=== PATIENT | female | born 1955 | race Caucasian/White ===

== ENCOUNTER 2018-02-02 11:29 | Emergency (ER) | payer OTHER ==
[2018-02-02 12:10] LABS: BASOPHILS % (AUTO) 0.7 % (0.0-5.0); EOSINOPHILS % (AUTO) 1.5 % (0.0-8.0); LYMPHOCYTES % (AUTO) 33.7 % (21.0-51.0); MEAN CORPUSCULAR HEMOGLOBIN 32.9 pg (27.0-33.0); MEAN CORPUSCULAR HGB CONC 35.2 g/dL (32.0-36.0); MEAN CORPUSCULAR VOLUME 93.6 fL (79-99); MONOCYTES % (AUTO) 5.1 % (3.0-13.0); PLATELET COUNT (AUTO) 139 K/uL (130-400); RED BLOOD CELL COUNT(AUTO) 4.37 MIL/uL (4.00-5.50); RED CELL DISTRIBUTION WIDTH 12.9 % (11.0-15.5); WHITE BLOOD COUNT (AUTO) 5.1 K/uL (4.8-10.8)
[2018-02-02 12:23] LABS: CREATININE 7.4 mg/dL (0.5-1.5)
[2018-02-02 12:28] LABS: BILIRUBIN,TOTAL 0.5 mg/dL (0.2-1.0); TOTAL PROTEIN, SERUM 7.8 g/dL (6.0-8.3)
[2018-02-02 12:34] LABS: INR 0.92 (0.85-1.15); PARTIAL THROMBOPLASTIN TIME 24.4 SEC (26.3-35.5); PROTHROMBIN TIME 9.7 SEC (9.6-11.6)
[2018-02-02] MEDS ORDERED: IPRATROPIUM/ALBUTEROL SULFATE 3 ML SOLUTION IH ONE (12:49)
[2018-02-02 13:51] LABS: APPEARANCE,URINE Clear (CLEAR); BILIRUBIN,URINE Negative (NEGATIVE); COLOR,URINE Yellow (YELLOW); GLUCOSE, URINE (UA) Negative (NEGATIVE); KETONES,URINE Negative (NEGATIVE); LEUKOCYTE ESTERASE ,URINE Negative (NEGATIVE); NITRATE,URINE Negative (NEGATIVE); OCCULT BLOOD,URINE Small (NEGATIVE); PH,URINE 8.5 (5.0-8.0); PROTEIN,URINE POS 1+ (NEGATIVE); UROBILINOGEN,URINE 0.2 mg/dL (0.2-1.0)
[2018-02-02 13:57] LABS: BACTERIA,URINE Rare /HPF (None Seen); RBC,URINE 0-1 /HPF (0-1); SQUAMOUS EPITHELIAL CELL,UR Rare /HPF (0-2); WBC,URINE 0-1 /HPF (0-1)
[2018-02-02 15:41] LABS: CREATINE KINASE MB < 0.5 ng/mL (0.5-3.6); CREATINE KINASE, TOTAL 14 U/L (21-232); MYOGLOBIN 116 ng/mL (10-92); TROPONIN I < 0.04 ng/mL (0.00-0.06)
== END 2018-02-02 16:22 | disposition home or self-care (01) ==
LOC: EDH 11:29
DX: J45.901 Unspecified asthma with (acute) exacerbation (principal); N18.6 End stage renal disease; Z99.2 Dependence on renal dialysis; Z88.6 Allergy status to analgesic agent; Z87.891 Personal history of nicotine dependence
CPT/HCPCS: 36415; 71045; 80053; 81001; 82550; 82553; 83874; 84484; 85025; 85610; 85730; 93005; 94640; 99291

== ENCOUNTER → 2018-12-28 | Outpatient (CLI) | payer OTHER ==
[2018-12-28 08:55] LABS: INR 0.95 (0.85-1.15)
--- NOTE | 2018-12-28 09:35 | NUR ---
U/S GD RIGHT THORACENTESIS PROCEDURE PERFORMED BY DR IBARAR. PUNCTURE SITE RIGHT POSTERIOR BACK AND PATIENT TOLERATED PROCEDURE WELL. TOTAL REMOVED 1.5 LITERS OF CLEAR YELLOW FLUID. END OF PROCEDURE AT 0955. CATHETER REMOVED AND DRESSING APPLIED. NO BLEEDING NOTED. POST CHEST X-RAY TAKEN AND READ BY DR IBARRA. NO PNEUMOTHORAX SEEN. DISCHARGE INSTRUCTIONS GIVEN TO PATIENT AND VERBALIZED UNDERSTANDING. DISCHARGED VIA W/C @ 1025. AAO X3 WITH NO C/O PAIN.
[2018-12-28 15:36] LABS: APPEARANCE BODY FLUID CLEAR (CLEAR); COLOR,BODY FLUID LT YELLOW (LT YELLOW); SPECIMENTYPE,BODY FLUID PLEURAL; TOTAL VOLUME,BODY FLUID 1500 mL
[2018-12-28 15:37] LABS: BODY FLUID RBC 13 /cu. mm.; BODY FLUID WBC 37 /cu. mm.
[2018-12-28 16:18] LABS: BF EOSINOPHIL 2 %; BF LYMPHOCYTE 29 %; BF MONOCYTE 17 %; BF OTHER CELLS 12
== END | disposition home or self-care (01) ==
LOC: RAH 08:12
PROVIDERS: ATTEND Internal Medicine Medical Oncology
DX: J90 Pleural effusion, not elsewhere classified (principal); C50.911 Malignant neoplasm of unspecified site of right female breast; N18.6 End stage renal disease; E66.9 Obesity, unspecified; J45.909 Unspecified asthma, uncomplicated; E78.5 Hyperlipidemia, unspecified; Z99.2 Dependence on renal dialysis; Z98.890 Other specified postprocedural states; Z87.891 Personal history of nicotine dependence; Z79.899 Other long term (current) drug therapy; Z88.6 Allergy status to analgesic agent; Z88.8 Allergy status to other drugs, medicaments and biological substances
CPT/HCPCS: 32555; 36415; 71045; 85610; 85730; 87071; 87116; 87205; 87206; 89051

== ENCOUNTER 2019-02-01 00:29 | Observation (INO) | payer OTHER ==
[~2019-02-01] VITALS: Ht 165.1 cm; Wt 64.8 kg
[2019-02-01 00:53] LABS: BASOPHILS % (AUTO) 0.8 % (0.0-5.0); EOSINOPHILS % (AUTO) 2.7 % (0.0-8.0); HEMATOCRIT 37.6 % (36-48); LYMPHOCYTES % (AUTO) 25.5 % (21.0-51.0); MEAN CORPUSCULAR HEMOGLOBIN 32.3 pg (27.0-33.0); MEAN CORPUSCULAR HGB CONC 34.2 g/dL (32.0-36.0); MEAN CORPUSCULAR VOLUME 94.4 fL (79-99); MONOCYTES % (AUTO) 6.6 % (3.0-13.0); NEUTROPHILS % (AUTO) 64.4 % (40.0-77.0); NUCLEATED RED BLOOD CELLS 0.1 % (0.0-0.19); PLATELET COUNT (AUTO) 160 K/uL (130-400); RED BLOOD CELL COUNT(AUTO) 3.99 MIL/uL (4.00-5.50); RED CELL DISTRIBUTION WIDTH 13.2 % (11.0-15.5); WHITE BLOOD COUNT (AUTO) 6.5 K/uL (4.8-10.8)
[2019-02-01 01:24] LABS: POTASSIUM 3.5 mmol/L (3.5-5.1)
[2019-02-01 01:29] LABS: ALBUMIN 3.1 g/dL (3.5-5.0); BILIRUBIN,TOTAL 0.3 mg/dL (0.2-1.0); TOTAL PROTEIN, SERUM 5.7 g/dL (6.0-8.3)
[2019-02-01 01:33] LABS: APPEARANCE,URINE Clear (CLEAR); BILIRUBIN,URINE Negative (NEGATIVE); COLOR,URINE Yellow (YELLOW); GLUCOSE, URINE (UA) Negative (NEGATIVE); KETONES,URINE Negative (NEGATIVE); LEUKOCYTE ESTERASE ,URINE Trace (NEGATIVE); NITRATE,URINE Negative (NEGATIVE); OCCULT BLOOD,URINE Trace (NEGATIVE); PROTEIN,URINE POS 1+ mg/dL (NEGATIVE); UROBILINOGEN,URINE 0.2 mg/dL (0.2-1.0)
[2019-02-01 01:54] LABS: RBC,URINE 0-1 /HPF (0-1); WBC,URINE 0-1 /HPF (0-1)
[2019-02-01 01:55] LABS: BACTERIA,URINE Few /HPF (None Seen); SQUAMOUS EPITHELIAL CELL,UR 0-2 /HPF (0-2)
[2019-02-01] MEDS ORDERED: ACETAMINOPHEN EXTRA STRENGTH 500 MG TABLET ONE (02:18)
[2019-02-01] MEDS ORDERED: NITROGLYCERIN 1GM/1 INCH PACKET TD SCH (04:15)
[2019-02-01] MEDS ORDERED: NITROGLYCERIN 0.4 MG SL TAB SL PRN (04:15)
[2019-02-01] MEDS ORDERED: ONDANSETRON HCL 4 MG/2 ML VIAL IV PRN (04:15)
[2019-02-01 04:35] LABS: MAGNESIUM 2.2 mg/dL (1.80-2.40); PHOSPHORUS 5.8 mg/dL (2.5-4.9)
[2019-02-01] MEDS ORDERED: ACETAMINOPHEN 325 MG TAB PO PRN ×2 (04:45)
[2019-02-01] MEDS ORDERED: NITROGLYCERIN 1GM/1 INCH PACKET TD ONE (04:50)
[2019-02-01 07:42] VITALS: BP 129/81
[2019-02-01] MEDS: FAMOTIDINE 20MG TAB 20 MG TAB PO SCH ×2 (09:06→19:51)
[2019-02-01] MEDS: NITROGLYCERIN 1GM/1 INCH PACKET TD SCH ×3 (09:07→23:14)
[2019-02-01] MEDS: ENOXAPARIN SODIUM 30 MG/0.3 ML SQ SCH (09:08)
[2019-02-01 09:35] LABS: CHOLESTEROL 210 mg/dL (<200); CREATINE KINASE, TOTAL 25 U/L (21-232); HDL CHOLESTEROL 46 mg/dL (35-85); LDL DIRECT 99 mg/dL (0-99); MYOGLOBIN 175 ng/mL (10-92); TRIGLYCERIDES 322 mg/dL (30-200); TROPONIN I < 0.04 ng/mL (0.00-0.06)
[2019-02-01] MEDS ORDERED: FOLI1TAB85 PO (10:17)
[2019-02-01] MEDS ORDERED: LETR2.5T6 PO (10:17)
[2019-02-01] MEDS ORDERED: SEVE800T27 PO (10:17)
[2019-02-01] MEDS ORDERED: MONT10TA21 PO (10:17)
[2019-02-01] MEDS ORDERED: ALBU8.5H8 IH (10:17)
[2019-02-01] MEDS ORDERED: CALC0.253 PO (10:17)
[2019-02-01 11:00] VITALS: BP 129/70
[2019-02-01 16:00] VITALS: BP 131/74
[2019-02-01 17:23] LABS: CREATINE KINASE, TOTAL 19 U/L (21-232); MYOGLOBIN 153 ng/mL (10-92); TROPONIN I < 0.04 ng/mL (0.00-0.06)
[2019-02-01 20:00] VITALS: BP 126/69
[2019-02-01 23:34] VITALS: BP 129/73
[2019-02-02 04:00] VITALS: BP 128/73
[2019-02-02 06:08] LABS: BASOPHILS % (AUTO) 1.5 % (0.0-5.0); EOSINOPHILS % (AUTO) 4.3 % (0.0-8.0); LYMPHOCYTES % (AUTO) 34.2 % (21.0-51.0); MEAN CORPUSCULAR HEMOGLOBIN 32.4 pg (27.0-33.0); MEAN CORPUSCULAR HGB CONC 34.5 g/dL (32.0-36.0); MEAN CORPUSCULAR VOLUME 93.9 fL (79-99); MONOCYTES % (AUTO) 6.3 % (3.0-13.0); NEUTROPHILS % (AUTO) 53.7 % (40.0-77.0); PLATELET COUNT (AUTO) 172 K/uL (130-400); RED BLOOD CELL COUNT(AUTO) 3.94 MIL/uL (4.00-5.50); WHITE BLOOD COUNT (AUTO) 4.2 K/uL (4.8-10.8)
[2019-02-02 06:46] LABS: BILIRUBIN,TOTAL 0.4 mg/dL (0.2-1.0); POTASSIUM 3.2 mmol/L (3.5-5.1); TOTAL PROTEIN, SERUM 6.3 g/dL (6.0-8.3)
[2019-02-02 08:00] VITALS: BP 115/71
[2019-02-02] MEDS: NITROGLYCERIN 1GM/1 INCH PACKET TD SCH ×2 (08:04→15:04)
[2019-02-02] MEDS: FAMOTIDINE 20MG TAB 20 MG TAB PO SCH (08:19)
[2019-02-02] MEDS: SEVELAMER HCL 800 MG TABLET PO SCH ×2 (08:19→11:30)
[2019-02-02] MEDS: ENOXAPARIN SODIUM 30 MG/0.3 ML SQ SCH (08:19)
[2019-02-02] MEDS ORDERED: FOLIC ACID/VITAMIN B COMP W-C 1 MG CAPSULE PO SCH (09:00)
[2019-02-02] MEDS ORDERED: MONTELUKAST SODIUM 10 MG TAB PO SCH (09:00)
[2019-02-02] MEDS ORDERED: LETROZOLE 2.5 MG PO SCH (09:00)
[2019-02-02] MEDS ORDERED: CALCITRIOL 0.25 MCG CAPSULE PO SCH (09:00)
[2019-02-02 11:00] VITALS: BP_SYST 135; BP_SYST 140; BP_DIAS 73; BP_DIAS 79
[2019-02-02] MEDS ORDERED: FAMO-136 PO (15:25)
[2019-02-02] MEDS ORDERED: POTASSIUM CHLORIDE 20 MEQ ERTAB PO SCH (15:30)
== END 2019-02-02 15:56 | disposition home or self-care (01) ==
LOC: EDH 00:29 → EDHIP 04:10 → 4BH 07:12
PROVIDERS: ADMIT Hospitalist; ATTEND Hospitalist
DX: R07.89 Other chest pain (principal); I12.0 Hypertensive chronic kidney disease with stage 5 chronic kidney disease or end stage renal disease; N18.6 End stage renal disease; E11.22 Type 2 diabetes mellitus with diabetic chronic kidney disease; E78.5 Hyperlipidemia, unspecified; R91.1 Solitary pulmonary nodule; I49.1 Atrial premature depolarization; J90 Pleural effusion, not elsewhere classified; K21.9 Gastro-esophageal reflux disease without esophagitis; K76.89 Other specified diseases of liver; Q61.3 Polycystic kidney, unspecified; Z90.710 Acquired absence of both cervix and uterus; Z92.21 Personal history of antineoplastic chemotherapy; Z85.3 Personal history of malignant neoplasm of breast; Z92.3 Personal history of irradiation; Z99.2 Dependence on renal dialysis; Z80.42 Family history of malignant neoplasm of prostate; Z88.8 Allergy status to other drugs, medicaments and biological substances; Z79.899 Other long term (current) drug therapy
CPT/HCPCS: 36415 ×2; 71045; 71250; 80053 ×2; 80061; 81001; 82550 ×3; 83615; 83690; 83735; 83874 ×2; 84100; 84484 ×4; 85025 ×2; 85378; 93005 ×4; 94760 ×2; 96372 ×2; 99284; G0378 ×36; J1650 ×2

== ENCOUNTER 2020-04-13 07:42 | Emergency (ER) | payer MEDICARE ==
[~2020-04-13 07:42] MED LIST: ALBU8.5H8 IH; CALC0.253 PO; FAMO-136 PO; FOLI1TAB85 PO; LETR2.5T7 PO; MONT10TA21 PO; SEVE800T27 PO
[2020-04-13 08:01] LABS: BASOPHILS % (AUTO) 0.6 % (0.0-5.0); EOSINOPHILS % (AUTO) 1.7 % (0.0-8.0); HEMATOCRIT 37.2 % (36-48); LYMPHOCYTES % (AUTO) 14.8 % (21.0-51.0); MEAN CORPUSCULAR HEMOGLOBIN 31.8 pg (27.0-33.0); MEAN CORPUSCULAR HGB CONC 34.1 g/dL (32.0-36.0); MEAN CORPUSCULAR VOLUME 93.2 fL (79-99); MONOCYTES % (AUTO) 6.2 % (3.0-13.0); NEUTROPHILS % (AUTO) 76.4 % (40.0-77.0); PLATELET COUNT (AUTO) 253 K/uL (130-400); RED BLOOD CELL COUNT(AUTO) 3.99 MIL/uL (4.00-5.50); RED CELL DISTRIBUTION WIDTH 12.6 % (11.0-15.5); WHITE BLOOD COUNT (AUTO) 9.3 K/uL (4.8-10.8)
[2020-04-13 08:13] LABS: INR 0.92 (0.85-1.15); PARTIAL THROMBOPLASTIN TIME 26.8 SEC (26.3-35.5)
[2020-04-13 08:16] LABS: ALBUMIN 3.2 g/dL (3.5-5.0); ASPARTATE AMINOTRANSFERASE 8 U/L (10-37); BILIRUBIN,TOTAL 0.5 mg/dL (0.2-1.0); CARBON DIOXIDE 27 mmol/L (21-32); CHLORIDE 95 mmol/L (101-111); CREATINE KINASE, TOTAL 48 U/L (21-232); GLOMERULAR FILTR. RATE CALC 2 mL/min (>60); GLUCOSE,RANDOM 123 mg/dL (70-105); POTASSIUM 3.3 mmol/L (3.5-5.1); SODIUM SERUM 142 mmol/L (136-145); TOTAL PROTEIN, SERUM 7.2 g/dL (6.0-8.3); UREA NITROGEN, BLOOD 47 mg/dL (7-18)
--- NOTE | 2020-04-13 08:28 | NUR ---
COVID-19 ASSESSMENT PATIENT PRESENTED TO ER WITH C/O SHORTNESS OF BREATH AND RECURRENT PLEURAL EFFUSION. DR SNOW AWARE OF PATIENT'S SYMPTOMS AND DOES NOT FEEL COVID-19 TESTING REQUIRED. Addendum: 04/13/20 at 0835 by SALBADOR SERRANO RN RN Amended: Links added.
[2020-04-13 08:34] LABS: ALANINE AMINOTRANSFERASE < 6 U/L (12-78)
[2020-04-13 08:35] LABS: CREATININE 15.7 mg/dL (0.5-1.5)
--- NOTE | 2020-04-13 09:04 | NUR ---
U/S GD RIGHT THORACENTESIS PROCEDURE PERFORMED BY DR Rosy RUVALCABA. PUNCTURE SITE RIGHT POSTERIOR BACK AND PATIENT TOLERATED PROCEDURE WELL. TOTAL REMOVED 1.5 LITERS OF CLEAR YELLOW FLUID. END OF PROCEDURE AT 0845. CATHETER REMOVED AND DRESSING APPLIED. NO BLEEDING NOTED. POST CHEST X-RAY TAKEN AND PENDING RESULTS. REPORT GIVEN TO Vannessa MINA RN AND PATIENT TRANSPORTED TO ED 19 VIA STRETCHER AT 0905. AAO X3 WITH NO C/O PAIN.
== END 2020-04-13 09:42 | disposition home or self-care (01) ==
LOC: EDH 07:42
DX: J90 Pleural effusion, not elsewhere classified (principal); R07.1 Chest pain on breathing; N18.6 End stage renal disease; Z88.6 Allergy status to analgesic agent; Z90.710 Acquired absence of both cervix and uterus; Z88.8 Allergy status to other drugs, medicaments and biological substances; Z99.2 Dependence on renal dialysis; Z87.891 Personal history of nicotine dependence
CPT/HCPCS: 32555; 36415; 71045 ×2; 80053; 82550; 84484; 85025; 85610; 85730; 93005; 99285; A4215

== ENCOUNTER 2020-09-15 19:32 | Emergency (ER) | payer MEDICARE ==
[2020-09-15 20:25] LABS: BASOPHILS % (AUTO) 0.4 % (0.0-5.0); LYMPHOCYTES % (AUTO) 13.1 % (21.0-51.0); MEAN CORPUSCULAR VOLUME 96.8 fL (79-99); MONOCYTES % (AUTO) 5.3 % (3.0-13.0); NEUTROPHILS % (AUTO) 79.8 % (40.0-77.0); PLATELET COUNT (AUTO) 221 K/uL (130-400); RED BLOOD CELL COUNT(AUTO) 3.41 MIL/uL (4.00-5.50); RED CELL DISTRIBUTION WIDTH 12.5 % (11.0-15.5)
[2020-09-15 20:39] LABS: ALBUMIN 3.3 g/dL (3.5-5.0); BILIRUBIN,TOTAL 0.5 mg/dL (0.2-1.0); POTASSIUM 3.9 mmol/L (3.5-5.1)
[2020-09-15 20:40] LABS: CREATININE 13.1 mg/dL (0.5-1.5)
[2020-09-15] MEDS ORDERED: METOCLOPRAMIDE 10 MG/2 ML VIAL ONE (20:52)
== END 2020-09-16 01:02 | disposition home or self-care (01) ==
LOC: EDH 19:32
DX: H81.399 Other peripheral vertigo, unspecified ear (principal); J90 Pleural effusion, not elsewhere classified; Z90.49 Acquired absence of other specified parts of digestive tract; Z90.710 Acquired absence of both cervix and uterus; Z88.6 Allergy status to analgesic agent; Z88.5 Allergy status to narcotic agent
CPT/HCPCS: 36415; 71045; 80053; 84484 ×2; 85025; 87426; 93005 ×2; 96374; 99285; J2765

== ENCOUNTER 2020-12-13 11:36 | Emergency (ER) | payer MEDICARE ==
[2020-12-13 12:08] LABS: BASOPHILS % (AUTO) 0.5 % (0.0-5.0); EOSINOPHILS % (AUTO) 1.6 % (0.0-8.0); HEMATOCRIT 30.9 % (36-48); LYMPHOCYTES % (AUTO) 17.2 % (21.0-51.0); MEAN CORPUSCULAR HEMOGLOBIN 31.7 pg (27.0-33.0); MEAN CORPUSCULAR HGB CONC 33.7 g/dL (32.0-36.0); MEAN CORPUSCULAR VOLUME 94.2 fL (79-99); MONOCYTES % (AUTO) 9.8 % (3.0-13.0); NEUTROPHILS % (AUTO) 70.5 % (40.0-77.0); PLATELET COUNT (AUTO) 191 K/uL (130-400); RED BLOOD CELL COUNT(AUTO) 3.28 MIL/uL (4.00-5.50); RED CELL DISTRIBUTION WIDTH 13.5 % (11.0-15.5); WHITE BLOOD COUNT (AUTO) 8.1 K/uL (4.8-10.8)
[2020-12-13 12:20] LABS: INR 0.94 (0.85-1.15); PROTHROMBIN TIME 10.3 SEC (9.6-11.6)
[2020-12-13 12:21] LABS: PARTIAL THROMBOPLASTIN TIME 22.8 SEC (26.3-35.5)
[2020-12-13 12:22] LABS: ALBUMIN 3.2 g/dL (3.5-5.0); BILIRUBIN,TOTAL 0.5 mg/dL (0.2-1.0); POTASSIUM 3.8 mmol/L (3.5-5.1); TOTAL PROTEIN, SERUM 6.5 g/dL (6.0-8.3)
[2020-12-13 12:30] LABS: CREATININE 12.4 mg/dL (0.5-1.5)
== END 2020-12-13 16:23 | disposition home or self-care (01) ==
LOC: EDH 11:36
DX: E87.70 Fluid overload, unspecified (principal); J90 Pleural effusion, not elsewhere classified; N18.6 End stage renal disease; Z99.2 Dependence on renal dialysis; Z90.49 Acquired absence of other specified parts of digestive tract; Z98.890 Other specified postprocedural states; Z88.5 Allergy status to narcotic agent; Z88.6 Allergy status to analgesic agent
CPT/HCPCS: 32555; 36415; 71045 ×2; 80053; 85025; 85610; 85730; 99285; A4215

== ENCOUNTER 2022-07-12 18:48 | Emergency (ER) | payer MEDICARE ==
[~2022-07-12] VITALS: Ht 165.1 cm; Wt 54.4 kg
[2022-07-12 19:54] LABS: BASOPHILS % (AUTO) 1.1 % (0.0-5.0); EOSINOPHILS % (AUTO) 3.9 % (0.0-8.0); HEMATOCRIT 38.9 % (36-48); LYMPHOCYTES % (AUTO) 20.5 % (21.0-51.0); MEAN CORPUSCULAR HGB CONC 33.2 g/dL (32.0-36.0); MEAN CORPUSCULAR VOLUME 93.5 fL (79-99); MONOCYTES % (AUTO) 8.1 % (3.0-13.0); NEUTROPHILS % (AUTO) 66.2 % (40.0-77.0); PLATELET COUNT (AUTO) 184 K/uL (130-400); RED BLOOD CELL COUNT(AUTO) 4.16 MIL/uL (4.00-5.50); RED CELL DISTRIBUTION WIDTH 13.5 % (11.0-15.5); WHITE BLOOD COUNT (AUTO) 5.6 K/uL (4.8-10.8)
[2022-07-12 20:09] LABS: ALBUMIN 2.8 g/dL (3.5-5.0); POTASSIUM 3.9 mmol/L (3.5-5.1); TOTAL PROTEIN, SERUM 6.2 g/dL (6.0-8.3)
[2022-07-12 20:18] LABS: CREATININE 10.4 mg/dL (0.5-1.5)
[2022-07-12 20:24] LABS: BILIRUBIN,URINE LARGE mg/dL (NEGATIVE); GLUCOSE, URINE (UA) 250 mg/dL (NEGATIVE); KETONES,URINE 15 mg/dL (NEGATIVE); LEUKOCYTE ESTERASE ,URINE MODERATE Leu/uL (NEGATIVE); NITRATE,URINE POSITIVE (NEGATIVE); OCCULT BLOOD,URINE LARGE (NEGATIVE); PROTEIN,URINE >=300 mg/dL (NEGATIVE); UROBILINOGEN,URINE >=8.0 mg/dL (0.2-1.0)
[2022-07-12 20:26] LABS: APPEARANCE,URINE TURBID (CLEAR)
[2022-07-12 20:27] LABS: COLOR,URINE BROWN (YELLOW)
[2022-07-12 20:33] LABS: BACTERIA,URINE Few /HPF (None Seen); RBC,URINE TNTC /HPF (0-1)
[2022-07-12 20:34] LABS: SQUAMOUS EPITHELIAL CELL,UR None Seen /HPF (0-2)
[2022-07-12 22:12] VITALS: BP 152/81
== END 2022-07-12 22:13 | disposition home or self-care (01) ==
LOC: EDH 18:48
DX: R31.9 Hematuria, unspecified (principal); Q61.3 Polycystic kidney, unspecified; N18.6 End stage renal disease; Z99.2 Dependence on renal dialysis; Z88.6 Allergy status to analgesic agent; Z88.5 Allergy status to narcotic agent; Z79.899 Other long term (current) drug therapy; Z90.89 Acquired absence of other organs; Z98.890 Other specified postprocedural states
CPT/HCPCS: 36415; 71045; 74176; 76770; 80053; 81001; 85025; 87088; 93005